=== PATIENT | male | born 1950 | race Caucasian/White ===

== ENCOUNTER 2018-02-20 08:42 | Day surgery (SDC) | payer MEDICARE, OTHER, MEDICAID ==
[2018-02-20] MEDS ORDERED: PROPOFOL 40 ML (11:32)
== END 2018-02-20 15:33 | disposition home or self-care (01) ==
LOC: GIL 08:42
DX: Z12.11 Encounter for screening for malignant neoplasm of colon (principal); K29.50 Unspecified chronic gastritis without bleeding; D12.0 Benign neoplasm of cecum; K64.8 Other hemorrhoids; K64.4 Residual hemorrhoidal skin tags; I10 Essential (primary) hypertension
CPT/HCPCS: 43239; 88305; 88312